=== PATIENT | female | born 1980 | race Caucasian/White ===

== ENCOUNTER 2016-09-21 23:32 | Inpatient (IN) | payer MEDICAID ==
[~2016-09-21] VITALS: Ht 152.4 cm; Wt 52.4 kg
[~2016-09-21 23:32] MED LIST: ELVITAB PO; LISI-360 PO; NORV10TA PO; SERO100T PO
[2016-09-21 23:37] VITALS: BP 171/102; PULSE 112; RESP 20; TEMP 98; O2SAT 97
[2016-09-22 00:11] VITALS: BP 177/103; PULSE 80; RESP 18; O2SAT 99
[2016-09-22] MEDS ORDERED: ELVITAB PO (00:17)
[2016-09-22] MEDS ORDERED: LISI-515 PO (00:17)
[2016-09-22 01:03] LABS: AUTOMATED NEUTROPHIL # 3.2 TH/MM3 (1.8-7.7); BASOPHIL % 0.7 % (0.0-2.0); EOSINOPHIL # 0.1 TH/MM3 (0-0.4); EOSINOPHIL % 1.8 % (0.0-4.0); HEMATOCRIT 39.1 % (35.0-46.0); HEMO FLAGS DIFF FINAL; LYMPH % 39.9 % (9.0-44.0); LYMPHOCYTE # 2.6 TH/MM3 (1.0-4.8); MEAN CELL VOLUME 88.9 FL (80.0-100.0); MEAN CORPUSCULAR HEMOGLOBIN 29.8 PG (27.0-34.0); MEAN CORPUSCULAR HGB CONC 33.5 % (32.0-36.0); MONO % 8.2 % (0.0-8.0); NEUT % 49.4 % (16.0-70.0); PLATELET COUNT 256 TH/MM3 (150-450); RED BLOOD COUNT 4.41 MIL/MM3 (4.00-5.30); RED CELL DISTRIBUTION WIDTH 14.2 % (11.6-17.2); WHITE BLOOD COUNT 6.4 TH/MM3 (4.0-11.0)
[2016-09-22 01:04] LABS: AMPHETAMINE, URINE NEG (NEG); BARBITURATES, URINE NEG (NEG); COCAINE, URINE POS (NEG)
--- NOTE | 2016-09-22 01:13 | PD ---
HPI . Suicidal and homicidal ideation Chief Complaint: Psychiatric Symptoms Time Seen by Provider: 23:52 Travel History International Travel<30 days: No Contact w/Intl Traveler<30days: No Traveled to known affect area: No History of Present Illness HPI Patient presents stating that she is suicidal and homicidal. She states that she's been feeling this way for the last couple weeks. She admits to cocaine abuse. She reports previous similar episodes. She has not noted any exacerbating or relieving factors. Symptoms are severe. PFSH Past Medical History Asthma: Yes Autoimmune Disease: Yes (HIV) Bipolar Disorder: Yes Anxiety: Yes Depression: Yes (MANIC DEPRESSIVE) Cancer: No Cardiovascular Problems: Yes (HTN) Diminished Hearing: No Endocrine: No Gastrointestinal Disorders: Yes Hypertension: Yes Immune Disorder: Yes (HIV) Medical other: Yes (HIV +, PTSD) Psychiatric: Yes (PTSD) Reproductive: No Respiratory: No Immunizations Current: Yes ([id number]) PNEUMOCCOCAL Vaccine (Year): 2 ?: Not LMP: 09/10/16 Menopausal: No : 5 Para: 4 Miscarriage: 0 : 0 Tubal Ligation: Yes Past Surgical History Section: Yes (2) Ear Surgery: Yes (tubes at age 10) Genitourinary Surgery: Yes (C section) Gynecologic Surgery: Yes (C SECTION X 2) Hysterectomy: No Tympanostomy Tube: Yes Other Surgery: Yes (ear reconstruction) Social History Alcohol Use: No Tobacco Use: Yes (1/2ppd) Substance Use: Yes (cocaine) Allergies-Medications (Allergen,Severity, Reaction): Coded Allergies: Ibuprofen (Verified Allergy, Mild, Burning, 09/21/16) PT STATES BURNING IN STOMACH. Uncoded Allergies: steriods (Allergy, Severe, 09/22/16) Reported Meds & Prescriptions Reported Meds & Active Scripts Active Reported Lisinopril 20 Mg Tab 20 Mg PO DAILY Stribild (Mejmydolpkco-Dsrqhyxatk-Lzshmglxirqi-Tenofvir) [phone] Mg Tab 1 Tab PO DAILY With food Review of Systems Except as stated in HPI: all other systems reviewed are Neg Psychiatric: Positive: Anxiety, Suicidal Ideations, Substance Abuse, Homicidal Ideation Physical Exam Narrative GENERAL: Psychomotor agitation. SKIN: Warm and dry. HEAD: Atraumatic. Normocephalic. EYES: Pupils equal and round. NECK: Trachea midline. CARDIOVASCULAR: Regular rate and rhythm. RESPIRATORY: No accessory muscle use. MUSCULOSKELETAL: No obvious deformities. No edema. NEUROLOGICAL: Awake and alert. No obvious cranial nerve deficits. Motor grossly within normal limits. Normal speech. PSYCHIATRIC: Slight of ideas. Poor eye contact. Pressure of speech. Reported suicidal and homicidal ideation. Data Data Last Documented VS Vital Signs Date Time Temp Pulse Resp B/P Pulse Ox O2 Delivery O2 Flow Rate FiO2 09/22/16 00:11 80 18 177/103 99 09/21/16 23:37 98.0 Orders Complete Blood Count With Diff (09/21/16 23:52) Comprehensive Metabolic Panel (09/21/16 23:52) Psych Screen (09/21/16 23:52) Drug Screen, Random Urine (09/21/16 23:52) Alcohol (Ethanol) (09/21/16 23:52) Labs Laboratory Tests Test 09/22/16 00:25 White Blood Count 6.4 TH/MM3 Red Blood Count 4.41 MIL/MM3 Hemoglobin 13.1 GM/DL Hematocrit 39.1 % Mean Corpuscular Volume 88.9 FL Mean Corpuscular Hemoglobin 29.8 PG Mean Corpuscular Hemoglobin 33.5 % Concent Red Cell Distribution Width 14.2 % Platelet Count 256 TH/MM3 Mean Platelet Volume 9.1 FL Neutrophils (%) (Auto) 49.4 % Lymphocytes (%) (Auto) 39.9 % Monocytes (%) (Auto) 8.2 % Eosinophils (%) (Auto) 1.8 % Basophils (%) (Auto) 0.7 % Neutrophils # (Auto) 3.2 TH/MM3 Lymphocytes # (Auto) 2.6 TH/MM3 Monocytes # (Auto) 0.5 TH/MM3 Eosinophils # (Auto) 0.1 TH/MM3 Basophils # (Auto) 0.0 TH/MM3 CBC Comment DIFF FINAL Differential Comment Sodium Level 140 MEQ/L Potassium Level 4.1 MEQ/L Chloride Level 103 MEQ/L Carbon Dioxide Level 29.9 MEQ/L Anion Gap 7 MEQ/L Blood Urea Nitrogen 12 MG/DL Creatinine 0.83 MG/DL Estimat Glomerular Filtration 77 ML/MIN Rate Random Glucose 80 MG/DL Calcium Level 8.7 MG/DL Total Bilirubin 0.4 MG/DL Aspartate Amino Transf 61 U/L (AST/SGOT) Alanine Aminotransferase 57 U/L (ALT/SGPT) Alkaline Phosphatase 113 U/L Total Protein 7.8 GM/DL Albumin 4.0 GM/DL Urine Opiates Screen NEG Urine Barbiturates Screen NEG Urine Amphetamines Screen NEG Urine Benzodiazepines Screen NEG Urine Cocaine Screen POS Urine Cannabinoids Screen NEG Ethyl Alcohol Level LESS THAN 3 MG/DL MDM Medical Decision Making Medical Screen Exam Complete: Yes Emergency Medical Condition: Yes Differential Diagnosis Differential diagnosis includes but is not limited to depression with suicidal gesture, suicide attempt, suicidal ideation, attention seeking behavior. Narrative Course Patient presents complaining of homicidal and suicidal ideation. She will have a medical clearance exam followed by a psychiatric consultation. CBC & BMP Diagram 09/22/16 00:25 Tox screen is positive for cocaine. Alcohol level was negative. Patient is medically clear for psychiatric evaluation. Diagnosis Primary Impression: Suicidal ideation Condition: Stable Hemalatha Parada MD Sep 22, 2016 01:13
[2016-09-22 01:22] LABS: ALKALINE PHOSPHATASE 113 U/L (45-117); ALT (GPT) 57 U/L (10-53); TOTAL BILIRUBIN ADULT 0.4 MG/DL (0.2-1.0)
[2016-09-22 01:30] LABS: ANION GAP 7 MEQ/L (5-15); AST (GOT) 61 U/L (15-37); BICARBONATE 29.9 MEQ/L (21.0-32.0); BLOOD UREA NITROGEN 12 MG/DL (7-18); CHLORIDE 103 MEQ/L (98-107); GLOMERULAR FILTRATION RATE 77 ML/MIN (>89); POTASSIUM 4.1 MEQ/L (3.5-5.1); SODIUM (NA) 140 MEQ/L (136-145)
[2016-09-22 01:53] VITALS: BP 162/96
[2016-09-22] MEDS ORDERED: OLANZapine IM 10 MG VIAL IM ONE (04:15)
[2016-09-22 06:32] VITALS: BP 172/88; PULSE 71; RESP 16
[2016-09-22] MEDS ORDERED: LORazepam 2 MG/ML VIAL IM PRN (10:00)
[2016-09-22] MEDS ORDERED: ALUMINUM/MAGNESIUM/SIMETH 30 ML CUP PO PRN (10:00)
[2016-09-22] MEDS ORDERED: MAGNESIUM HYDROXIDE SUSP 30 ML CUP PO PRN (10:00)
[2016-09-22] MEDS ORDERED: ACETAMINOPHEN 325 MG TAB PO PRN (10:00)
[2016-09-22] MEDS ORDERED: traZODone HCL 50 MG TAB PO PRN (10:00)
[2016-09-22 11:15] VITALS: BP 152/90; PULSE 81; RESP 18; TEMP 98.1
--- NOTE | 2016-09-22 12:24 | PD.CONS ---
[facility] Reason for Consult Comanagement of hypertension and HIV Primary Care Physician Denilson Luna MD Diagnoses: History of Present Illness This is a 36-year-old female with history of hypertension, PTSD, bipolar disorder and HIV admitted to psych unit for suicidal and homicidal ideations. Per patient, she does not have any complaints other than mild chest pain, worse with palpation, otherwise no shortness of breath, nausea, vomiting, abdominal pain, headache. Blood pressures in the 150s to 160s. Last time she took her HIV medications and lisinopril was yesterday. Review of Systems ROS Limitations: Other (All other pertinent systems were reviewed and are negative.) Past Family Social History Allergies: Coded Allergies: Ibuprofen (Verified Allergy, Mild, Burning, 09/21/16) PT STATES BURNING IN STOMACH. Uncoded Allergies: steriods (Allergy, Severe, 09/22/16) Past Medical History Hypertension Bipolar disorder PTSD HIV Past Surgical History section Bilateral tubal ligation Reported Medications Lisinopril 20 Mg Tab 20 Mg PO DAILY Stribild (Zmtwzhxeodlg-Qneighgjvp-Kmwokvhgcnfk-Tenofvir) [phone] Mg Tab 1 Tab PO DAILY With food Family History Family history is positive for diabetes Social History Smokes about 5 cigarettes a day, denies drinking alcohol, uses cocaine. Last use was about 2 days ago. Physical Exam Vital Signs Vital Signs Date Time Temp Pulse Resp B/P Pulse Ox O2 Delivery O2 Flow Rate FiO2 09/22/16 06:32 71 16 172/88 09/22/16 01:53 162/96 09/22/16 00:11 80 18 177/103 99 09/21/16 23:37 98.0 112 20 171/102 97 Physical Exam Not in distress, well-nourished, looks stated age PERRL, pink conjunctiva without injection, anicteric Nose without bleeding, airway patent, oropharynx clear Supple neck, no masses or thyromegaly, trachea midline Normal rate and regular rhythm, no murmurs gallops or rubs appreciated. Palpable chest tenderness on palpation and movement. Clear to auscultation and symmetric bilaterally, normal respiratory effort. Normal bowel sounds, soft, non-tender, nondistended, no guarding. Extremities without clubbing, cyanosis, or edema. No rash of generalized distribution. Skin is warm and dry. AAO x3, no cranial nerve deficits, moves all 4 extremities, no focal neurologic deficits Manic Laboratory Laboratory Tests Test 09/22/16 00:25 White Blood Count 6.4 Red Blood Count 4.41 Hemoglobin 13.1 Hematocrit 39.1 Mean Corpuscular Volume 88.9 Mean Corpuscular Hemoglobin 29.8 Mean Corpuscular Hemoglobin 33.5 Concent Red Cell Distribution Width 14.2 Platelet Count 256 Mean Platelet Volume 9.1 Neutrophils (%) (Auto) 49.4 Lymphocytes (%) (Auto) 39.9 Monocytes (%) (Auto) 8.2 Eosinophils (%) (Auto) 1.8 Basophils (%) (Auto) 0.7 Neutrophils # (Auto) 3.2 Lymphocytes # (Auto) 2.6 Monocytes # (Auto) 0.5 Eosinophils # (Auto) 0.1 Basophils # (Auto) 0.0 CBC Comment DIFF FINAL Differential Comment Sodium Level 140 Potassium Level 4.1 Chloride Level 103 Carbon Dioxide Level 29.9 Anion Gap 7 Blood Urea Nitrogen 12 Creatinine 0.83 Estimat Glomerular Filtration 77 Rate Random Glucose 80 Calcium Level 8.7 Total Bilirubin 0.4 Aspartate Amino Transf 61 (AST/SGOT) Alanine Aminotransferase 57 (ALT/SGPT) Alkaline Phosphatase 113 Total Protein 7.8 Albumin 4.0 Urine Opiates Screen NEG Urine Barbiturates Screen NEG Urine Amphetamines Screen NEG Urine Benzodiazepines Screen NEG Urine Cocaine Screen POS Urine Cannabinoids Screen NEG Ethyl Alcohol Level LESS THAN 3 Result Diagram: 09/22/16 0025 09/22/16 0025 Assessment and Plan Problem List: (1) HTN (hypertension) ICD Code: I10 Status: Chronic (2) HIV disease ICD Code: B20 Status: Chronic Assessment and Plan This is a 36-year-old female with history of hypertension and HIV, admitted to psych unit for suicidal or homicidal ideations Suicidal and homicidal ideations-further management per psychiatry Hypertension-restart lisinopril, clonidine as needed HIV-allegedly, patient has been compliant, no leukocytosis or leukopenia, BMP stable, mild LFT elevation, restart HAART medications. Recheck LFTs in the next few days. Mild LFT elevation-denies alcohol use, recheck in the next few days Cocaine abuse-counseled DVT prophylaxis: Low risk, ambulating. Farhad Lee MD Sep 22, 2016 12:24
[2016-09-22] MEDS ORDERED: cloNIDine HCL 0.1 MG TAB PO PRN (12:30)
[2016-09-22] MEDS: LISINOPRIL 20 MG TAB PO SCH (13:01)
[2016-09-22] MEDS: ELVIT/COBI/EMTR/TENOF 150/150/200/300 MG TABLETS PO SCH (14:52)
[2016-09-22] MEDS: LORazepam 1 MG TAB PO PRN (18:01)
[2016-09-23] MEDS: LORazepam 1 MG TAB PO PRN ×3 (02:16→09:46)
[2016-09-23 07:39] VITALS: BP 106/62; PULSE 72; TEMP 98.1; O2SAT 99
[2016-09-23] MEDS: LISINOPRIL 20 MG TAB PO SCH (08:52)
[2016-09-23] MEDS: ELVIT/COBI/EMTR/TENOF 150/150/200/300 MG TABLETS PO SCH (08:52)
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
== END 2016-09-23 16:00 | disposition home or self-care (01) | DRG 882 ==
LOC: NEPC 23:32 → NEDA 09-22 10:09 → H260 09-22 11:15
PROVIDERS: ADMIT Psychiatry & Neurology Psychiatry; ATTEND Psychiatry & Neurology Psychiatry
DX: F43.25 Adjustment disorder with mixed disturbance of emotions and conduct (principal); R45.851 Suicidal ideations; R45.850 Homicidal ideations; I10 Essential (primary) hypertension; F14.10 Cocaine abuse, uncomplicated; J45.909 Unspecified asthma, uncomplicated; F41.9 Anxiety disorder, unspecified; F17.210 Nicotine dependence, cigarettes, uncomplicated; F43.10 Post-traumatic stress disorder, unspecified; F31.9 Bipolar disorder, unspecified; Z59.0 Homelessness
CPT/HCPCS: 80053; 80307; 85025; 96372

== ENCOUNTER 2016-10-09 23:35 | Emergency (ER) | payer MEDICAID ==
[~2016-10-09 23:35] MED LIST changes: -LISI-360 PO; +LISI-515 PO; -NORV10TA PO; -SERO100T PO
[2016-10-09 23:39] VITALS: BP 174/87; PULSE 91; RESP 16; TEMP 98; O2SAT 99
--- NOTE | 2016-10-10 02:08 | PD ---
HPI . Suicidal ideation Chief Complaint: Psychiatric Symptoms Time Seen by Provider: 01:57 Travel History International Travel<30 days: No Contact w/Intl Traveler<30days: No Traveled to known affect area: No History of Present Illness HPI Patient presents complaining with suicidal ideation. She states that she has been trying to kill herself all day by smoking crack cocaine. Patient states that she smokes crack cocaine daily. She states that it is worse today. She denies any other substance abuse. Symptoms are continuous and severe. Symptoms are exacerbated by cocaine abuse. PFSH Past Medical History Asthma: Yes Autoimmune Disease: Yes (HIV +) Bipolar Disorder: Yes Anxiety: Yes Depression: Yes Diminished Hearing: No Endocrine: No Gastrointestinal Disorders: Yes Hypertension: Yes Immune Disorder: No Psychiatric: Yes (Bipolor from previous reports) Reproductive: No Respiratory: No Immunizations Current: Yes ([id number]) Thyroid Disease: No Tetanus Vaccination: < 5 Years Influenza Vaccination: Yes PNEUMOCCOCAL Vaccine (Year): 2 ?: Unknown Menopausal: No : 5 Para: 4 Miscarriage: 0 : 0 Tubal Ligation: Yes Past Surgical History Abdominal Surgery: No Cardiac Surgery: No Section: Yes (2) Ear Surgery: Yes (tubes) Eye Surgery: No Genitourinary Surgery: No Gynecologic Surgery: No Hysterectomy: No Oral Surgery: No Tympanostomy Tube: Yes Other Surgery: Yes (tubal ligation; x 2) Social History Alcohol Use: No Tobacco Use: Yes (1/2ppd) Substance Use: Yes (crack, cocaine, marijuana) Allergies-Medications (Allergen,Severity, Reaction): Coded Allergies: Ibuprofen (Verified Allergy, Mild, Burning, 10/10/16) PT STATES BURNING IN STOMACH. Uncoded Allergies: steriods (Allergy, Severe, 09/22/16) Reported Meds & Prescriptions Reported Meds & Active Scripts Active Reported Lisinopril 20 Mg Tab 20 Mg PO DAILY Stribild (Pzwmpwifaxdv-Qcwutudthf-Jibpsuaibrcn-Tenofvir) [phone] Mg Tab 1 Tab PO DAILY With food Review of Systems Except as stated in HPI: all other systems reviewed are Neg Psychiatric: Positive: Suicidal Ideations, Substance Abuse Physical Exam Narrative GENERAL: This is a thin woman who has psychomotor agitation. SKIN: Warm and dry. HEAD: Atraumatic. Normocephalic. EYES: Pupils equal and round. Extraocular is are intact. ENT: No nasal bleeding or discharge. Mucous membranes pink and moist. NECK: Trachea midline. Neck is supple. CARDIOVASCULAR: Regular rate and rhythm. RESPIRATORY: No accessory muscle use. MUSCULOSKELETAL: No obvious deformities. No edema. NEUROLOGICAL: Awake and alert. No obvious cranial nerve deficits. Motor grossly within normal limits. Normal speech. PSYCHIATRIC: Pressure speech. Psychomotor agitation. Poor judgment. Data Data Last Documented VS Vital Signs Date Time Temp Pulse Resp B/P Pulse Ox O2 Delivery O2 Flow Rate FiO2 10/10/16 01:50 20 10/09/16 23:39 98.0 91 174/87 99 Room Air Orders Complete Blood Count With Diff (10/10/16 01:57) Comprehensive Metabolic Panel (10/10/16 01:57) Psych Screen (10/10/16 01:57) Drug Screen, Random Urine (10/10/16 01:57) Alcohol (Ethanol) (10/10/16 01:57) Labs Laboratory Tests Test 10/10/16 02:00 White Blood Count 10.6 TH/MM3 Red Blood Count 4.30 MIL/MM3 Hemoglobin 12.6 GM/DL Hematocrit 37.8 % Mean Corpuscular Volume 88.1 FL Mean Corpuscular Hemoglobin 29.3 PG Mean Corpuscular Hemoglobin 33.3 % Concent Red Cell Distribution Width 14.5 % Platelet Count 293 TH/MM3 Mean Platelet Volume 8.0 FL Neutrophils (%) (Auto) 67.7 % Lymphocytes (%) (Auto) 26.0 % Monocytes (%) (Auto) 5.2 % Eosinophils (%) (Auto) 0.4 % Basophils (%) (Auto) 0.7 % Neutrophils # (Auto) 7.2 TH/MM3 Lymphocytes # (Auto) 2.8 TH/MM3 Monocytes # (Auto) 0.6 TH/MM3 Eosinophils # (Auto) 0.0 TH/MM3 Basophils # (Auto) 0.1 TH/MM3 CBC Comment DIFF FINAL Differential Comment Sodium Level 137 MEQ/L Potassium Level 3.4 MEQ/L Chloride Level 101 MEQ/L Carbon Dioxide Level 29.1 MEQ/L Anion Gap 7 MEQ/L Blood Urea Nitrogen 14 MG/DL Creatinine 1.02 MG/DL Estimat Glomerular Filtration 61 ML/MIN Rate Random Glucose 79 MG/DL Calcium Level 9.6 MG/DL Total Bilirubin 0.5 MG/DL Aspartate Amino Transf 21 U/L (AST/SGOT) Alanine Aminotransferase 22 U/L (ALT/SGPT) Alkaline Phosphatase 85 U/L Total Protein 8.3 GM/DL Albumin 4.3 GM/DL Urine Opiates Screen NEG Urine Barbiturates Screen NEG Urine Amphetamines Screen NEG Urine Benzodiazepines Screen NEG Urine Cocaine Screen POS Urine Cannabinoids Screen POS Ethyl Alcohol Level LESS THAN 3 MG/DL MDM Medical Decision Making Medical Screen Exam Complete: Yes Emergency Medical Condition: Yes Medical Record Reviewed: Yes (I saw the patient couple weeks ago under very similar circumstances. She was observed for 4-48 hours and then discharge.) Differential Diagnosis Differential diagnosis includes but is not limited to depression with suicidal gesture, suicide attempt, suicidal ideation, attention seeking behavior. Narrative Course Patient presents complaining with suicidal ideation. She admits to crack cocaine abuse. She'll be medically cleared and then evaluated by psychiatry. CBC & BMP Diagram 10/10/16 02:00 Tox screen is positive for cocaine and THC. Patient is medically clear for psychiatric evaluation. Diagnosis Primary Impression: Suicidal ideation Condition: Hemalatha Jones MD October 10, 2016 02:08
[2016-10-10 02:23] LABS: AUTOMATED NEUTROPHIL # 7.2 TH/MM3 (1.8-7.7); BASOPHIL # 0.1 TH/MM3 (0-0.2); BASOPHIL % 0.7 % (0.0-2.0); EOSINOPHIL % 0.4 % (0.0-4.0); HEMATOCRIT 37.8 % (35.0-46.0); HEMO FLAGS DIFF FINAL; LYMPHOCYTE # 2.8 TH/MM3 (1.0-4.8); MEAN CELL VOLUME 88.1 FL (80.0-100.0); MEAN CORPUSCULAR HEMOGLOBIN 29.3 PG (27.0-34.0); MEAN CORPUSCULAR HGB CONC 33.3 % (32.0-36.0); MONO % 5.2 % (0.0-8.0); NEUT % 67.7 % (16.0-70.0); PLATELET COUNT 293 TH/MM3 (150-450); RED CELL DISTRIBUTION WIDTH 14.5 % (11.6-17.2); WHITE BLOOD COUNT 10.6 TH/MM3 (4.0-11.0)
[2016-10-10 02:32] LABS: AMPHETAMINE, URINE NEG (NEG); BARBITURATES, URINE NEG (NEG); COCAINE, URINE POS (NEG)
[2016-10-10 02:54] LABS: ALKALINE PHOSPHATASE 85 U/L (45-117); TOTAL BILIRUBIN ADULT 0.5 MG/DL (0.2-1.0)
[2016-10-10 02:57] LABS: ALT (GPT) 22 U/L (10-53); ANION GAP 7 MEQ/L (5-15); AST (GOT) 21 U/L (15-37); BICARBONATE 29.1 MEQ/L (21.0-32.0); BLOOD UREA NITROGEN 14 MG/DL (7-18); CHLORIDE 101 MEQ/L (98-107); GLOMERULAR FILTRATION RATE 61 ML/MIN (>89); POTASSIUM 3.4 MEQ/L (3.5-5.1); SODIUM (NA) 137 MEQ/L (136-145)
[2016-10-10 09:00] VITALS: BP 136/82; PULSE 75; RESP 16; TEMP 98; O2SAT 99
== END 2016-10-10 10:09 | disposition home or self-care (01) ==
LOC: NEPE 23:35 → NEPD 10-10 10:09
DX: R45.851 Suicidal ideations (principal); F14.10 Cocaine abuse, uncomplicated; F17.200 Nicotine dependence, unspecified, uncomplicated; I10 Essential (primary) hypertension; Z79.899 Other long term (current) drug therapy
CPT/HCPCS: 80053; 80307; 85025; 99284

== ENCOUNTER 2017-01-17 12:51 | Emergency (ER) | payer MEDICAID ==
[~2017-01-17] VITALS: Ht 157.5 cm; Wt 59.0 kg
[2017-01-17 12:55] VITALS: BP 159/77; PULSE 71; RESP 18; TEMP 98.5; O2SAT 100
[2017-01-17] MEDS ORDERED: SODIUM CHLOR 0.9% 1000 ML INJ 1,000 ML IV SCH (13:13)
[2017-01-17] MEDS ORDERED: MORPHINE SULFATE 8 MG/ML INJ IV PUSH ONE (13:15)
[2017-01-17] MEDS ORDERED: SODIUM CHLORIDE 0.9% FLUSH 10 ML FLUSH IV FLUSH PRN (13:15)
[2017-01-17] MEDS ORDERED: ONDANSETRON HCL 4 MG/2 ML VIAL IVP ONE (13:15)
[2017-01-17 13:51] LABS: BLOOD, URINE NEG (NEG); GLUCOSE,URINE NEG (NEG); KETONE, URINE NEG (NEG); NITRITE,URINE NEG (NEG); PH, URINE 5.5 (5.0-8.5)
[2017-01-17 13:53] LABS: AUTOMATED NEUTROPHIL # 3.9 TH/MM3 (1.8-7.7); BASOPHIL # 0.1 TH/MM3 (0-0.2); BASOPHIL % 1.4 % (0.0-2.0); EOSINOPHIL # 0.1 TH/MM3 (0-0.4); EOSINOPHIL % 1.3 % (0.0-4.0); HEMATOCRIT 36.6 % (35.0-46.0); HEMO FLAGS DIFF FINAL; LYMPHOCYTE # 2.5 TH/MM3 (1.0-4.8); MEAN CELL VOLUME 89.3 FL (80.0-100.0); MEAN CORPUSCULAR HEMOGLOBIN 30.5 PG (27.0-34.0); MEAN CORPUSCULAR HGB CONC 34.1 % (32.0-36.0); MONO % 6.5 % (0.0-8.0); NEUT % 55.8 % (16.0-70.0); PLATELET COUNT 244 TH/MM3 (150-450); RED CELL DISTRIBUTION WIDTH 13.3 % (11.6-17.2); WHITE BLOOD COUNT 7.1 TH/MM3 (4.0-11.0)
[2017-01-17 13:54] LABS: METHOD OF COLLECTION CLEAN CATCH; URINE COLOR YELLOW (YELLW/STRAW)
[2017-01-17 13:55] LABS: RBC, URINE 0-3 /hpf (0-3); SQUAMOUS EPITHELIAL CELL URINE 0-5 /hpf (0-5)
[2017-01-17 13:56] LABS: BACTERIA, URINE OCC /hpf; COMMENT (UR) CULTURE INDICATED; CULTURE IF INDICATED CULTURE INDICATED
[2017-01-17 14:03] LABS: CHLORIDE 104 MEQ/L (98-107); POTASSIUM 4.3 MEQ/L (3.5-5.1); SODIUM (NA) 137 MEQ/L (136-145)
[2017-01-17 14:07] LABS: ANION GAP 7 MEQ/L (5-15); BICARBONATE 25.7 MEQ/L (21.0-32.0); BLOOD UREA NITROGEN 11 MG/DL (7-18)
[2017-01-17 14:10] LABS: ALT (GPT) 19 U/L (10-53); AST (GOT) 26 U/L (15-37); GLOMERULAR FILTRATION RATE 86 ML/MIN (>89)
[2017-01-17 14:11] LABS: TOTAL BILIRUBIN ADULT 0.6 MG/DL (0.2-1.0)
[2017-01-17 14:12] LABS: ALKALINE PHOSPHATASE 76 U/L (45-117)
[2017-01-17] MEDS ORDERED: IOHEXOL 350 MG/ML 10 ML VIAL (for RAD DIAG) IV ONE (14:24)
--- NOTE | 2017-01-17 14:29 | PD ---
HPI Chief Complaint: Abdominal Pain Time Seen by Provider: 13:13 Travel History International Travel<30 days: No Contact w/Intl Traveler<30days: No Traveled to known affect area: No History of Present Illness HPI 36-year-old female arrives complaining of suprapubic abdominal pain and pain in the right abdomen both upper and lower portions. Duration has been about 3 days. The patient describes dysuria evidently severe with spotting on the toilet paper. She's had no nausea vomiting or fever. She has had diarrhea lately. The patient reports she is HIV positive with CD4 count of over 900 and undetectable viral load based on lab work done within the last couple weeks. Strict compliance with antiretrovirals reported. No abnormal vaginal discharge. PFSH Past Medical History Asthma: Yes Autoimmune Disease: Yes (HIV +) Bipolar Disorder: Yes Anxiety: Yes Depression: Yes Diminished Hearing: No Endocrine: No Gastrointestinal Disorders: Yes Hypertension: Yes Immune Disorder: No Psychiatric: Yes ([place] from previous reports) Reproductive: No Respiratory: No Immunizations Current: Yes ([id number]) Thyroid Disease: No PNEUMOCCOCAL Vaccine (Year): 2 ?: Not LMP: AUG. 1 Menopausal: No : 5 Para: 4 Miscarriage: 0 : 0 Tubal Ligation: Yes Past Surgical History Abdominal Surgery: No Cardiac Surgery: No Section: Yes (2) Ear Surgery: Yes (tubes) Eye Surgery: No Genitourinary Surgery: No Gynecologic Surgery: No Hysterectomy: No Oral Surgery: No Tympanostomy Tube: Yes Other Surgery: Yes (tubal ligation; x 2) Social History Alcohol Use: No Tobacco Use: Yes (1/2ppd) Substance Use: Yes (crack, cocaine, marijuana) Allergies-Medications (Allergen,Severity, Reaction): Coded Allergies: Ibuprofen (Verified Allergy, Mild, Burning, 01/17/17) PT STATES BURNING IN STOMACH. Uncoded Allergies: steriods (Allergy, Severe, 09/22/16) Reported Meds & Prescriptions Reported Meds & Active Scripts Active Reported Zoloft (Sertraline HCl) 25 Mg Tab 25 Mg PO DAILY Depakote ER (Divalproex Sodium) 250 Mg Robbie 650 Mg PO DAILY Lisinopril 20 Mg Tab 20 Mg PO DAILY Stribild (Otherehpbdyt-Qtcezwqpeb-Mivgfervzpri-Tenofvir) [phone] Mg Tab 1 Tab PO DAILY With food Review of Systems Except as stated in HPI: all other systems reviewed are Neg General / Constitutional: No: Fever Genitourinary: Positive: Frequency, Dysuria Physical Exam Narrative GENERAL: 36-year-old female well-nourished well-developed SKIN: Warm and dry. HEAD: Atraumatic. Normocephalic. EYES: Pupils equal and round. No scleral icterus. No injection or drainage. ENT: No nasal bleeding or discharge. Mucous membranes pink and moist. NECK: Trachea midline. No JVD. CARDIOVASCULAR: Regular rate and rhythm. RESPIRATORY: No accessory muscle use. Clear to auscultation. Breath sounds equal bilaterally. GASTROINTESTINAL: No flank tenderness to percussion. Abdomen is soft generally. There is tenderness to palpation in the right upper quadrant and right lower quadrant. MUSCULOSKELETAL: Extremities without clubbing, cyanosis, or edema. No obvious deformities. NEUROLOGICAL: Awake and alert. No obvious cranial nerve deficits. Motor grossly within normal limits. Five out of 5 muscle strength in the arms and legs. Normal speech. PSYCHIATRIC: Appropriate mood and affect; insight and judgment normal. Data Data Last Documented VS Vital Signs Date Time Temp Pulse Resp B/P Pulse Ox O2 Delivery O2 Flow Rate FiO2 01/17/17 12:55 98.5 71 18 159/77 100 Vital signs reviewed Orders Complete Blood Count With Diff (01/17/17 13:13) Comprehensive Metabolic Panel (01/17/17 13:13) Lipase (01/17/17 13:13) Urinalysis - C+S If Indicated (01/17/17 13:13) Ct Abd/Pel W Iv Contrast(Rout) (01/17/17 13:13) Iv Access Insert/Monitor (01/17/17 13:13) Ecg Monitoring (01/17/17 13:13) Oximetry (01/17/17 13:13) Ondansetron Inj (Zofran Inj) (01/17/17 13:15) Sodium Chlor 0.9% 1000 Ml Inj (Ns 1000 M (01/17/17 13:13) Sodium Chloride 0.9% Flush (Ns Flush) (01/17/17 13:15) Electrocardiogram (01/17/17 13:13) Morphine Inj (Morphine Inj) (01/17/17 13:15) Ed Urine Pregnancytest Poc (01/17/17 13:13) Urine Culture (01/17/17 12:33) Iohexol 350 Inj (Omnipaque 350 Inj) (01/17/17 14:24) Cephalexin (Keflex) (01/17/17 15:15) Labs Laboratory Tests Test 01/17/17 01/17/17 12:33 13:35 Urine Collection Type CLEAN CATCH Urine Color YELLOW Urine Turbidity SLIGHT Urine pH 5.5 Urine Specific [place] 1.026 Urine Protein NEG mg/dL Urine Glucose (UA) NEG mg/dL Urine Ketones NEG mg/dL Urine Occult Blood NEG Urine Nitrite NEG Urine Bilirubin NEG Urine Leukocyte Esterase SMALL Urine RBC 0-3 /hpf Urine WBC 25-49 /hpf Urine Squamous Epithelial 0-5 /hpf Cells Urine Bacteria OCC /hpf Microscopic Urinalysis Comment CULTURE INDICATED White Blood Count 7.1 TH/MM3 Red Blood Count 4.10 MIL/MM3 Hemoglobin 12.5 GM/DL Hematocrit 36.6 % Mean Corpuscular Volume 89.3 FL Mean Corpuscular Hemoglobin 30.5 PG Mean Corpuscular Hemoglobin 34.1 % Concent Red Cell Distribution Width 13.3 % Platelet Count 244 TH/MM3 Mean Platelet Volume 8.6 FL Neutrophils (%) (Auto) 55.8 % Lymphocytes (%) (Auto) 35.0 % Monocytes (%) (Auto) 6.5 % Eosinophils (%) (Auto) 1.3 % Basophils (%) (Auto) 1.4 % Neutrophils # (Auto) 3.9 TH/MM3 Lymphocytes # (Auto) 2.5 TH/MM3 Monocytes # (Auto) 0.5 TH/MM3 Eosinophils # (Auto) 0.1 TH/MM3 Basophils # (Auto) 0.1 TH/MM3 CBC Comment DIFF FINAL Differential Comment Sodium Level 137 MEQ/L Potassium Level 4.3 MEQ/L Chloride Level 104 MEQ/L Carbon Dioxide Level 25.7 MEQ/L Anion Gap 7 MEQ/L Blood Urea Nitrogen 11 MG/DL Creatinine 0.75 MG/DL Estimat Glomerular Filtration 86 ML/MIN Rate Random Glucose 82 MG/DL Calcium Level 8.8 MG/DL Total Bilirubin 0.6 MG/DL Aspartate Amino Transf 26 U/L (AST/SGOT) Alanine Aminotransferase 19 U/L (ALT/SGPT) Alkaline Phosphatase 76 U/L Total Protein 7.7 GM/DL Albumin 3.6 GM/DL Lipase 197 U/L [facility] Medical Decision Making Medical Screen Exam Complete: Yes Emergency Medical Condition: Yes Medical Record Reviewed: Yes Differential Diagnosis Constipation, Gastritis, Acute Cholecystitis, Biliary Colic, Pancreatitis, ATWOOD , Hepatitis, Bowel Obstruction, Cystitis, Mesenteric Ischemia, AAA, Appendicitis , Renal Stone/Hydronephrosis, GERD, perforated viscous Narrative Course CBC & BMP Diagram 01/17/17 13:35 LFTs: normal Lipase: normal UA: UTI present Last 24 hours Impressions Abdomen/Pelvis CT 01/17/17 1313 Signed Impressions: Service Date/Time: Tuesday, January 17, 2017 14:20 - CONCLUSION: 1. No acute process. 2. 18 mm right adnexal cyst. 3. 1 cm left renal cyst. Dwayne Mcallister MD The patient is resting comfortably and feels better, is alert and in no distress. The patients results and examination findings were discussed. The repeat examination is unremarkable and benign. The history, exam, diagnostic testing, and current condition do not suggest any significant pathology to warrant further testing, continued ED treatment, admission, or surgical evaluation at this point. The vital signs have been stable. The patient does not have uncontrollable pain, intractable vomiting, or other significant symptoms. The patient's condition is stable and appropriate for discharge. The patient will pursue further outpatient evaluation with a primary care physician or other designated or consulting physician as indicated in the discharge instructions. The patient expressed understanding and was agreeable with this plan. Diagnosis Primary Impression: Cystitis Additional Impression: Ovarian cyst Qualified Code: N83.201 - Cyst of right ovary Referrals: Primary Care Physician 2 days Additional Instructions: You have a choice when it comes to health care, and we are glad that you chose [facility]. Hopefully, we have met your expectations on today's visit. You are welcome to return to [facility] at any time, as we are committed to meeting the health care needs of our community. Med/Other Pt SpecificInfo: Prescription(s) given Disposition: DISCHARGE HOME Condition: Stable Joseluis Camarena MD Jan 17, 2017 14:28
[2017-01-17] MEDS ORDERED: CEPH-460 PO (14:35)
[2017-01-17] MEDS ORDERED: DIVA250ER PO (14:40)
[2017-01-17] MEDS ORDERED: ZOLO25TA PO (14:40)
--- NOTE | 2017-01-17 14:53 | RADRPT ---
EXAM DATE/TIME: 01/17/2017 14:20 [place] COMPARISON: No previous studies available for comparison. INDICATIONS : Right lower quadrant pain. IV CONTRAST: 80 cc Omnipaque 350 (iohexol) IV ORAL CONTRAST: No oral contrast ingested. RADIATION DOSE: 5.88 CTDIvol (mGy) MEDICAL HISTORY : Hypertension. HIV. Seizures.Asthma. SURGICAL HISTORY : Tubal ligation. section. ENCOUNTER: Initial ACUITY: 4 - 6 days PAIN SCALE: 9/10 LOCATION: Right lower quadrant TECHNIQUE: Volumetric scanning of the abdomen and pelvis was performed. Using automated exposure control and ad justment of the mA and/or kV according to patient size, radiation dose was kept as low as reasonably achievable to obtain optimal diagnostic quality images. DICOM format image data is available electro nically for review and comparison. FINDINGS: LOWER LUNGS: The visualized lower lungs are clear. LIVER: Homogeneous density without lesion. There is no dilation of the biliary tree. No calcified gallston es. SPLEEN: Normal size without lesion. PANCREAS: Within normal limits. KIDNEYS: Normal in size and shape. There is no mass, stone or hydronephrosis. 1 cm simple cyst is identified in the left kidney. ADRENAL GLANDS: Within normal limits. VASCULAR: There is no aortic aneurysm. BOWEL/MESENTERY: The stomach, small bowel, and colon demonstrate no acute abnormality. There is no free intraperitone al air or fluid. ABDOMINAL WALL: Within normal limits. RETROPERITONEUM: There is no lymphadenopathy. BLADDER: No wall thickening or mass. REPRODUCTIVE: 18 mm right adnexal cyst is noted. Uterus and ovaries are unremarkable. INGUINAL: There is no lymphadenopathy or hernia. MUSCULOSKELETAL: Within normal limits for patient age. CONCLUSION: 1. No acute process. 2. 18 mm right adnexal cyst. 3. 1 cm left renal cyst. Dwayne Mcallister MD on January 17, 2017 at 14:48 Board Certified Radiologist. This report was verified electronically.
[2017-01-17] MEDS ORDERED: CEPHALEXIN MONOHYDRATE 500 MG CAP PO ONE (15:15)
[2017-01-17 15:29] VITALS: BP 148/72
[2017-01-17] MEDS ORDERED: HYDR-3533 PO (16:05)
--- NOTE | 2017-01-18 18:11 | EKG ---
Date Performed: 01/17/2017 Time Performed: 13:21:27 PTAGE: 36 years EKG: SINUS BRADYCARDIA WITH SINUS ARRHYTHMIA loss of R waves, but largely unchanged since prior tracing ABNORMAL ECG PREVIOUS TRACING : 06/21/2015 02.04 DOCTOR: Néstor Aaron Interpretating Date/Time 01/18/2017 18:11:17
== END 2017-01-17 16:09 | disposition home or self-care (01) ==
LOC: PHED 12:51
DX: N30.90 Cystitis, unspecified without hematuria (principal); B96.89 Other specified bacterial agents as the cause of diseases classified elsewhere; N83.201 Unspecified ovarian cyst, right side; I10 Essential (primary) hypertension; F17.200 Nicotine dependence, unspecified, uncomplicated; Z21 Asymptomatic human immunodeficiency virus [HIV] infection status
CPT/HCPCS: 74177; 80053; 81001; 83690; 84703; 85025; 87086; 93005; 96361; 96374; 96375; 99285; J2270; J2405; J7030; Q9967

== ENCOUNTER 2017-02-08 11:58 | Emergency (ER) | payer MEDICAID ==
[~2017-02-08] VITALS: Ht 157.5 cm; Wt 58.0 kg
[~2017-02-08 11:58] MED LIST changes: +DIVA250ER PO; +HYDR-3533 PO; +ZOLO25TA PO
[2017-02-08 12:04] VITALS: BP 191/114; PULSE 83; RESP 16; TEMP 99; O2SAT 100
[2017-02-08 12:51] LABS: AUTOMATED NEUTROPHIL # 3.1 TH/MM3 (1.8-7.7); BASOPHIL # 0.1 TH/MM3 (0-0.2); BASOPHIL % 1.4 % (0.0-2.0); EOSINOPHIL # 0.1 TH/MM3 (0-0.4); EOSINOPHIL % 1.5 % (0.0-4.0); HEMATOCRIT 38.1 % (35.0-46.0); HEMO FLAGS DIFF FINAL; LYMPH % 38.3 % (9.0-44.0); LYMPHOCYTE # 2.4 TH/MM3 (1.0-4.8); MEAN CELL VOLUME 89.6 FL (80.0-100.0); MEAN CORPUSCULAR HEMOGLOBIN 30.5 PG (27.0-34.0); MONO % 8.2 % (0.0-8.0); NEUT % 50.6 % (16.0-70.0); PLATELET COUNT 249 TH/MM3 (150-450); RED BLOOD COUNT 4.26 MIL/MM3 (4.00-5.30); RED CELL DISTRIBUTION WIDTH 12.4 % (11.6-17.2); WHITE BLOOD COUNT 6.2 TH/MM3 (4.0-11.0)
[2017-02-08 12:53] LABS: BLOOD, URINE NEG (NEG); GLUCOSE,URINE NEG (NEG); KETONE, URINE NEG (NEG); NITRITE,URINE NEG (NEG)
[2017-02-08 12:54] LABS: METHOD OF COLLECTION CLEAN CATCH; URINE COLOR YELLOW (YELLW/STRAW)
[2017-02-08 12:59] LABS: BACTERIA, URINE MOD /hpf; COMMENT (UR) CULTURE INDICATED; COMMENT2 (UR) MUCOUS PRESENT; CULTURE IF INDICATED CULTURE INDICATED; RBC, URINE 0-3 /hpf (0-3); SQUAMOUS EPITHELIAL CELL URINE > 8 /hpf (0-5)
[2017-02-08 13:00] LABS: CHLORIDE 104 MEQ/L (98-107); SODIUM (NA) 137 MEQ/L (136-145)
[2017-02-08] MEDS ORDERED: MORPHINE SULFATE 4 MG/ML INJ IV PUSH ONE (13:00)
[2017-02-08] MEDS ORDERED: SODIUM CHLOR 0.9% 1000 ML INJ 1,000 ML IV ONE (13:00)
[2017-02-08 13:04] LABS: ANION GAP 7 MEQ/L (5-15); BICARBONATE 25.8 MEQ/L (21.0-32.0); BLOOD UREA NITROGEN 9 MG/DL (7-18)
[2017-02-08 13:07] LABS: ALT (GPT) 22 U/L (10-53); AST (GOT) 23 U/L (15-37); GLOMERULAR FILTRATION RATE 67 ML/MIN (>89)
[2017-02-08 13:08] LABS: TOTAL BILIRUBIN ADULT 0.5 MG/DL (0.2-1.0)
[2017-02-08 13:10] LABS: ALKALINE PHOSPHATASE 67 U/L (45-117)
--- NOTE | 2017-02-08 13:13 | PD ---
HPI Chief Complaint: Abdominal Pain Time Seen by Provider: 12:29 Travel History International Travel<30 days: No Contact w/Intl Traveler<30days: No Traveled to known affect area: No History of Present Illness HPI This is a 36-year-old female who has a history of HIV with a CD4 count on 900 with a undetectable viral load who presents to the emergency department with abdominal discomfort, worse in the left upper quadrant and left lower quadrant, moderate severity, constant associated with bloody stools. She says she's been having intermittent abdominal pains for over a year. She's had multiple workups including an endoscopy and a colonoscopy both of which have been reassuring. They've never come up with an etiology of her pain. She has had a low-grade temperature. She denies any vomiting, dysuria or vaginal discharge. PFSH Past Medical History Asthma: Yes Autoimmune Disease: Yes (HIV +) Bipolar Disorder: Yes Anxiety: Yes Depression: Yes Diminished Hearing: No Endocrine: No Gastrointestinal Disorders: Yes Hypertension: Yes Immune Disorder: No Psychiatric: Yes (PTSD) Reproductive: No Respiratory: No Immunizations Current: Yes Thyroid Disease: No Tetanus Vaccination: < 5 Years Influenza Vaccination: No PNEUMOCCOCAL Vaccine (Year): 2 ?: Not LMP: Beginning January/tubal Menopausal: No : 5 Para: 4 Miscarriage: 0 : 0 Tubal Ligation: Yes Past Surgical History Abdominal Surgery: No Cardiac Surgery: No Section: Yes (2) Ear Surgery: Yes (Tubes) Eye Surgery: No Genitourinary Surgery: No Gynecologic Surgery: No Hysterectomy: No Oral Surgery: No Tympanostomy Tube: Yes Other Surgery: Yes (tubal ligation; x 2) Social History Alcohol Use: No (Denies today 02/08/17) Tobacco Use: Yes (1 pack/week) Substance Use: No (Denies today 02/08/17) Allergies-Medications (Allergen,Severity, Reaction): Coded Allergies: ibuprofen (Unverified Allergy, Mild, Burning, 02/08/17) PT STATES BURNING IN STOMACH. Uncoded Allergies: steriods (Allergy, Severe, DEPLETES CD4 COUNT, 02/08/17) Reported Meds & Prescriptions Reported Meds & Active Scripts Active Lortab (Hydrocodone-Acetaminophen) 5-325 Mg Tab 1-2 Tab PO Q6H PRN Reported Zoloft (Sertraline HCl) 25 Mg Tab 25 Mg PO DAILY Depakote ER (Divalproex Sodium) 250 Mg Robbie 650 Mg PO DAILY Lisinopril 20 Mg Tab 20 Mg PO DAILY Stribild (Fbwnwzsapeoh-Samndxghtw-Xvnvlhrzipem-Tenofvir) [phone] Mg Tab 1 Tab PO DAILY With food Review of Systems Except as stated in HPI: all other systems reviewed are Neg Physical Exam Narrative GENERAL:Well appearing, no acute distress SKIN: Focused skin assessment warm and dry. HEAD: Atraumatic. Normocephalic. EYES: Pupils equal and round. No injection or drainage. ENT: Moist mucous membranes NECK: Trachea midline. CARDIOVASCULAR: Regular rate and rhythm. No murmur appreciated. RESPIRATORY: Clear to auscultation. Breath sounds equal bilaterally. GASTROINTESTINAL: Abdomen soft, tender to palpation in the left upper quadrant with no rebound or guarding. MUSCULOSKELETAL: No obvious deformities. NEUROLOGICAL: Awake and alert. No obvious cranial nerve deficits. Moving all extremities. PSYCHIATRIC: Appropriate mood and affect; insight and judgment normal. Data Data Last Documented VS Vital Signs Date Time Temp Pulse Resp B/P (MAP) Pulse Ox O2 Delivery O2 Flow Rate FiO2 02/08/17 12:04 99.0 83 16 191/114 (139) 100 Orders Orders Complete Blood Count With Diff (02/08/17 12:29) Comprehensive Metabolic Panel (02/08/17 12:29) Lipase (02/08/17 12:29) Urinalysis - C+S If Indicated (02/08/17 12:29) ^ Insert Iv (02/08/17 12:29) Ed Urine Pregnancytest Poc (02/08/17 12:29) Morphine Inj (Morphine Inj) (02/08/17 13:00) Sodium Chlor 0.9% 1000 Ml Inj (Ns 1000 M (02/08/17 13:00) Urine Culture (02/08/17 12:45) Wet Prep Profile (02/08/17 13:08) Gc And Chlamydia Pcr (02/08/17 13:08) Labs Laboratory Tests Test 02/08/17 12:45 White Blood Count 6.2 TH/MM3 Red Blood Count 4.26 MIL/MM3 Hemoglobin 13.0 GM/DL Hematocrit 38.1 % Mean Corpuscular Volume 89.6 FL Mean Corpuscular Hemoglobin 30.5 PG Mean Corpuscular Hemoglobin Concent 34.0 % Red Cell Distribution Width 12.4 % Platelet Count 249 TH/MM3 Mean Platelet Volume 8.2 FL Neutrophils (%) (Auto) 50.6 % Lymphocytes (%) (Auto) 38.3 % Monocytes (%) (Auto) 8.2 % Eosinophils (%) (Auto) 1.5 % Basophils (%) (Auto) 1.4 % Neutrophils # (Auto) 3.1 TH/MM3 Lymphocytes # (Auto) 2.4 TH/MM3 Monocytes # (Auto) 0.5 TH/MM3 Eosinophils # (Auto) 0.1 TH/MM3 Basophils # (Auto) 0.1 TH/MM3 CBC Comment DIFF FINAL Differential Comment Urine Collection Type CLEAN CATCH Urine Color YELLOW Urine Turbidity SLIGHT Urine pH 6.0 Urine Specific [place] 1.022 Urine Protein NEG mg/dL Urine Glucose (UA) NEG mg/dL Urine Ketones NEG mg/dL Urine Occult Blood NEG Urine Nitrite NEG Urine Bilirubin NEG Urine Leukocyte Esterase SMALL Urine RBC 0-3 /hpf Urine WBC 9-14 /hpf Urine Squamous Epithelial Cells > 8 /hpf Urine Amorphous Sediment FEW Urine Bacteria MOD /hpf Urine Trichomonas FEW Microscopic Urinalysis Comment CULTURE INDICATED Urine Collection Time 1245 Blood Urea Nitrogen 9 MG/DL Creatinine 0.94 MG/DL Random Glucose 88 MG/DL Total Protein 7.8 GM/DL Albumin 3.7 GM/DL Calcium Level 8.8 MG/DL Alkaline Phosphatase 67 U/L Aspartate Amino Transf (AST/SGOT) 23 U/L Alanine Aminotransferase (ALT/SGPT) 22 U/L Total Bilirubin 0.5 MG/DL Sodium Level 137 MEQ/L Potassium Level 4.0 MEQ/L Chloride Level 104 MEQ/L Carbon Dioxide Level 25.8 MEQ/L Anion Gap 7 MEQ/L Estimat Glomerular Filtration Rate 67 ML/MIN Lipase 205 U/L [facility] Medical Decision Making Medical Screen Exam Complete: Yes Emergency Medical Condition: Yes Medical Record Reviewed: Yes (patient was seen here in the emergency department on January 17 and diagnosed with cystitis. She had a CT of the abdomen and pelvis that was reassuring.) Interpretation(s) Temperature is 99.0, hypertension No leukocytosis Electrolytes are reassuring Lipase is normal Urinalysis demonstrates white blood cells and Trichomonas Differential Diagnosis Colitis, anemia, pancreatitis, pelvic inflammatory disease Narrative Course This is a 36-year-old female who presents to the emergency department with abdominal pain. She says she's had chronic abdominal pain for a year but it's gotten worse over the past several weeks. She also has had some bloody stools. She just had a pretty extensive workup couple weeks ago with a CT scan and labs which were all reassuring. Her abdominal exam is fairly benign. Pelvic exam demonstrates copious green discharge and tenderness consistent with pelvic inflammatory disease. Urinalysis demonstrates Trichomonas. Patient will be treated empirically for PID. I suspect this is the source of the exacerbation of her pain. Patient can be discharged home. Diagnosis Primary Impression: Pelvic inflammatory disease Additional Impression: Trichomonas infection Patient Instructions: General Instructions Additional Instructions: If you develop fever, chills, severe abdominal pain, persistent vomiting or inability to eat return to the emergency department. Your pelvic exam today did not include a Pap smear. It is important to followup with a supervisor parachute manufacturing on a yearly basis to be tested for cervical cancer as we do not do that from the emergency department. If there is a concern that you have sexually transmitted disease, your partner should be tested. You should followup with your supervisor parachute manufacturing or with the health department to get tested for other sexually transmitted diseases like HIV and syphilis, as we do not test for these in the emergency department Med/Other Pt SpecificInfo: Prescription(s) given Scripts Doxycycline Hyclate (Doxycycline Hyclate) 100 Mg Cap 100 MG PO BID for Infection, #28 CAP 0 Refills Prov: Lin Lomas MD 02/08/17 Disposition: 01 DISCHARGE HOME Condition: Stable Lin Lomas MD Feb 08, 2017 13:13
[2017-02-08] MEDS ORDERED: DOXY100C PO (13:51)
[2017-02-08] MEDS ORDERED: cefTRIAXone 250 MG VIAL IM ONE (14:00)
[2017-02-08] MEDS ORDERED: LIDOCAINE HCL 1% 50 ML VIAL IM ONE (14:00)
[2017-02-08] MEDS ORDERED: metroNIDAZOLE 500 MG TAB PO ONE (14:00)
[2017-02-08 14:15] VITALS: BP 191/101; PULSE 72; RESP 18; O2SAT 100
[2017-02-08 19:22] LABS: CHLAMYDIA PCR NOT DETECTED (NOT DETECT); NEISSERIA PCR NOT DETECTED (NOT DETECT)
== END 2017-02-08 14:45 | disposition home or self-care (01) ==
LOC: PHED 11:58
DX: N73.9 Female pelvic inflammatory disease, unspecified (principal); A59.9 Trichomoniasis, unspecified; K92.1 Melena; R50.9 Fever, unspecified; I10 Essential (primary) hypertension; Z72.0 Tobacco use; Z21 Asymptomatic human immunodeficiency virus [HIV] infection status; Z87.09 Personal history of other diseases of the respiratory system; Z86.59 Personal history of other mental and behavioral disorders; Z87.19 Personal history of other diseases of the digestive system
CPT/HCPCS: 80053; 81001; 83690; 84703; 85025; 87086; 87210; 87491; 87591; 96361; 96372; 96374; 99284; J0696; J2270; J7030

== ENCOUNTER 2017-09-17 12:59 | Emergency (ER) | payer MEDICAID ==
[~2017-09-17] VITALS: Ht 157.5 cm; Wt 71.0 kg
[~2017-09-17 12:59] MED LIST changes: +DOXY100C PO
[2017-09-17 13:02] VITALS: BP 214/126; PULSE 72; RESP 16; TEMP 98.6; O2SAT 100
[2017-09-17] MEDS ORDERED: AMLO10 PO (13:20)
[2017-09-17] MEDS ORDERED: ELVI1TAB3 PO (13:20)
[2017-09-17] MEDS ORDERED: SODIUM CHLORIDE 0.9% FLUSH 10 ML FLUSH IVF PRN (13:30)
--- NOTE | 2017-09-17 13:33 | PD ---
HPI . Cough and myalgias Chief Complaint: Cold / Flu Symptoms Time Seen by Provider: 13:09 Travel History International Travel<30 days: No Contact w/Intl Traveler<30days: No Traveled to known affect area: No History of Present Illness HPI This patient presents with a one-month history of cough, purulent sputum, chest congestion and myalgias. She describes the sputum is green. The sputum production started about 2 weeks ago. It has been persistent since that time. She rates the pain of her myalgias as 10. She was seen at an urgent care center about a week ago and diagnosed with bronchitis. She was given an albuterol inhaler. She states that she was also given prednisone but cannot take prednisone because she is HIV positive. She reports no improvement in her symptoms with the albuterol. PFSH Past Medical History Hx Anticoagulant Therapy: No Asthma: Yes Autoimmune Disease: Yes (HIV +) Bipolar Disorder: Yes Anxiety: Yes Depression: Yes Cardiovascular Problems: Yes (CA, HTN) Diabetes: No Diminished Hearing: No Endocrine: No Gastrointestinal Disorders: Yes Hypertension: Yes Immune Disorder: No Psychiatric: Yes (PTSD) Reproductive: No Respiratory: No Immunizations Current: Yes Thyroid Disease: No PNEUMOCCOCAL Vaccine (Year): 2 ?: Not Menopausal: No : 5 Para: 4 Miscarriage: 0 : 0 Tubal Ligation: Yes Past Surgical History Abdominal Surgery: No Cardiac Surgery: No Section: Yes (2) Ear Surgery: Yes (Tubes) Eye Surgery: No Genitourinary Surgery: No Gynecologic Surgery: No Hysterectomy: No Oral Surgery: No Tympanostomy Tube: Yes Other Surgery: Yes (tubal ligation; x 2) Social History Alcohol Use: No (Denies today 02/08/17) Tobacco Use: No Substance Use: No Allergies-Medications (Allergen,Severity, Reaction): Coded Allergies: ibuprofen (Unverified Allergy, Mild, Burning, 09/17/17) PT STATES BURNING IN STOMACH. Uncoded Allergies: steriods (Allergy, Severe, DEPLETES CD4 COUNT, 02/08/17) Reported Meds & Prescriptions Reported Meds & Active Scripts Active Reported Norvasc (Amlodipine Besylate) 10 Mg Tab 10 Mg PO HS Genvoya (Wjdufuivnnef-Dftkwkziut-Dgjyuundponz-Tenofvir) [id number] Mg Tab 1 Tab PO DAILY Lisinopril 20 Mg Tab 20 Mg PO DAILY Review of Systems Except as stated in HPI: all other systems reviewed are Neg General / Constitutional: No: Fever, Chills Respiratory: Positive: Cough Musculoskeletal: Positive: Myalgias Physical Exam Narrative GENERAL: The patient is able to speak in complete sentences without dyspnea. She is very upset that she did not have a chest x-ray done at urgent care. The patient reports that she is a non-smoker but was noted to have a cigarette tucked between her breasts when she undressed. SKIN: warm/dry. Normal color and turgor. HEAD: Normocephalic. Atraumatic. EYES: Pupils equal and round. No scleral icterus. No injection or drainage. ENT: No nasal bleeding or discharge. Mucous membranes pink and moist. NECK: Trachea midline. Full range of motion without pain.. CARDIOVASCULAR: Regular rate and rhythm. RESPIRATORY: No accessory muscle use. Clear to auscultation. Breath sounds equal bilaterally. MUSCULOSKELETAL: No obvious deformities. NEUROLOGICAL: Awake and alert. No obvious cranial nerve deficits. Motor grossly within normal limits. Normal speech. PSYCHIATRIC: Appropriate mood and affect; insight and judgment normal. Data Data Last Documented VS Vital Signs Date Time Temp Pulse Resp B/P (MAP) Pulse Ox O2 Delivery O2 Flow Rate FiO2 09/17/17 13:02 98.6 72 16 214/126 (155) 100 Orders Orders Basic Metabolic Panel (Bmp) (09/17/17 13:19) Complete Blood Count With Diff (09/17/17 13:19) Lactic Acid Sepsis Protocol (09/17/17 13:19) Blood Culture (09/17/17 13:19) Sputum Culture And Gram Stain (09/17/17 13:19) Chest, Pa & Lat (09/17/17 13:19) Sodium Chloride 0.9% Flush (Ns Flush) (09/17/17 13:30) Chlorphenir-Hydrocodone Liq (Tussionex L (09/17/17 14:00) Labs Laboratory Tests Test 09/17/17 13:25 09/17/17 13:30 White Blood Count 11.6 TH/MM3 Red Blood Count 4.02 MIL/MM3 Hemoglobin 12.1 GM/DL Hematocrit 36.8 % Mean Corpuscular Volume 91.6 FL Mean Corpuscular Hemoglobin 30.0 PG Mean Corpuscular Hemoglobin Concent 32.7 % Red Cell Distribution Width 12.5 % Platelet Count 342 TH/MM3 Mean Platelet Volume 8.0 FL Neutrophils (%) (Auto) 55.3 % Lymphocytes (%) (Auto) 35.5 % Monocytes (%) (Auto) 6.7 % Eosinophils (%) (Auto) 2.0 % Basophils (%) (Auto) 0.5 % Neutrophils # (Auto) 6.4 TH/MM3 Lymphocytes # (Auto) 4.1 TH/MM3 Monocytes # (Auto) 0.8 TH/MM3 Eosinophils # (Auto) 0.2 TH/MM3 Basophils # (Auto) 0.1 TH/MM3 CBC Comment DIFF FINAL Differential Comment Blood Urea Nitrogen 13 MG/DL Creatinine 0.78 MG/DL Random Glucose 89 MG/DL Calcium Level 7.9 MG/DL Sodium Level 137 MEQ/L Potassium Level 3.7 MEQ/L Chloride Level 103 MEQ/L Carbon Dioxide Level 27.9 MEQ/L Anion Gap 6 MEQ/L Estimat Glomerular Filtration Rate 82 ML/MIN Lactic Acid Level 1.0 mmol/L MDM Medical Decision Making Medical Screen Exam Complete: Yes Emergency Medical Condition: Yes Differential Diagnosis Differential diagnosis includes but is not limited to viral respiratory illness , bronchitis, pneumonia, allergies, CHF, asthma/COPD. Narrative Course This patient presents for the evaluation of cough, sputum production and myalgias. I have initiated the evaluation for possible community-acquired pneumonia. Last Impressions Chest X-Ray 09/17/17 1319 Signed Impressions: Service Date/Time: Sunday, September 17, 2017 13:31 - CONCLUSION: No acute disease. Mp Hurtado MD FACR Chest x-ray was independently reviewed by me. CBC & BMP Diagram 09/17/17 13:25 Calcium Level 7.9 L LA 1.2 She does not meet any SIRS criteria. No etiology for her persistent cough has been found. She will be discharged home with instructions to follow-up with her primary care provider for further evaluation. In the meantime, I will suggest an mcur-kvx-sokomns antihistamine. Diagnosis Primary Impression: Cough Additional Impression: Myalgia Patient Instructions: Chronic Cough (DC), General Instructions Additional Instructions: Follow-up with your primary care provider for the cough. In the meantime, take an [id number]-oro-rqoeycl antihistamine such as Claritin, Zyrtec or Zuleika. Generic brands of any of these medications are fine. Disposition: 01 DISCHARGE HOME Condition: Stable Hemalatha Parada MD Sep 17, 2017 13:33
[2017-09-17 13:54] LABS: AUTOMATED NEUTROPHIL # 6.4 TH/MM3 (1.8-7.7); BASOPHIL # 0.1 TH/MM3 (0-0.2); BASOPHIL % 0.5 % (0.0-2.0); EOSINOPHIL # 0.2 TH/MM3 (0-0.4); HEMATOCRIT 36.8 % (35.0-46.0); HEMOGLOBIN 12.1 GM/DL (11.6-15.3); LYMPH % 35.5 % (9.0-44.0); LYMPHOCYTE # 4.1 TH/MM3 (1.0-4.8); MEAN CELL VOLUME 91.6 FL (80.0-100.0); MEAN CORPUSCULAR HGB CONC 32.7 % (32.0-36.0); MONO % 6.7 % (0.0-8.0); MONOCYTE # 0.8 TH/MM3 (0-0.9); NEUT % 55.3 % (16.0-70.0); PLATELET COUNT 342 TH/MM3 (150-450); RED BLOOD COUNT 4.02 MIL/MM3 (4.00-5.30); RED CELL DISTRIBUTION WIDTH 12.5 % (11.6-17.2); WHITE BLOOD COUNT 11.6 TH/MM3 (4.0-11.0)
--- NOTE | 2017-09-17 13:54 | RADRPT ---
EXAM DATE/TIME: 09/17/2017 13:31 [facility] COMPARISON: No previous studies available for comparison. INDICATIONS : Congestion, cough, body aches x 1 month. MEDICAL HISTORY : Hypertension. Myocardial infarction. HIV. Asthma. TB. SURGICAL HISTORY : Tubal ligation. section. ENCOUNTER: Initial ACUITY: 1 month PAIN SCORE: 10/10 LOCATION: Bilateral chest FINDINGS: PA and lateral views of the chest demonstrate the lungs to be symmetrically aerated without evidence of mass, infiltrate or effusion. The cardiomediastinal contours are unremarkable. Osseous structure s are intact. CONCLUSION: No acute disease. Mp Hurtado MD FACR on September 17, 2017 at 13:51 Board Certified Radiologist. This report was verified electronically.
[2017-09-17] MEDS ORDERED: CHLORPHENIR/HYDROCOD LIQUID 8 MG/10 MG/5 ML CUP PO ONE (14:00)
[2017-09-17 14:06] LABS: BICARBONATE 27.9 MEQ/L (21.0-32.0); CALCIUM 7.9 MG/DL (8.5-10.1)
[2017-09-17 14:10] LABS: CREATININE 0.78 MG/DL (0.50-1.00)
[2017-09-17 15:19] VITALS: BP 188/98
== END 2017-09-17 15:21 | disposition home or self-care (01) ==
LOC: PHED 12:59
DX: R05 Cough (principal); M79.1 Myalgia; R09.89 Other specified symptoms and signs involving the circulatory and respiratory systems; J45.909 Unspecified asthma, uncomplicated; F31.9 Bipolar disorder, unspecified; I10 Essential (primary) hypertension; F43.10 Post-traumatic stress disorder, unspecified; Z79.899 Other long term (current) drug therapy; Z21 Asymptomatic human immunodeficiency virus [HIV] infection status
CPT/HCPCS: 71046; 80048; 83605; 85025; 87040; 99284